=== PATIENT | female | born 1995 | race Caucasian/White ===

== ENCOUNTER 2025-05-01 04:53 | Emergency (ER) | payer MEDICAID, OTHER ==
[2025-05-01 05:28] LABS: #Basophils 0.0 thou/uL (0.0-0.2); #Eosinophils 0.2 thou/uL (0.0-0.7); #Lymphocytes 2.3 thou/uL (1.20-3.40); #Monocytes 0.4 thou/uL (0.11-0.59); #Neutrophils 4.3 thou/uL (1.40-6.50); %Basophils 0.6 % (0.0-1.0); %Eosinophils 3.0 % (0.0-10.0); %Lymphocytes 31.4 % (21.0-51.0); %Monocytes 5.3 % (0.0-10.0); %Neutrophils 59.6 % (42.0-75.0); Hematocrit 43.5 % (36.0-47.0); Hemoglobin 14.5 g/dL (12.0-16.0); Mean Corpuscular Hemoglobin 27.7 pg (27.0-31.0); Mean Corpuscular Volume 83.0 fl (78.0-98.0); Platelet Count 281 10x3/uL (130-400); Red Blood Cell (RBC) Count 5.24 mill/uL (4.20-5.40); White Blood Cell (WBC) Count 7.2 10x3/uL (4.8-10.8)
[2025-05-01] MEDS ORDERED: Ondansetron PF 4 MG/2 ML Vial ONE (05:43)
[2025-05-01] MEDS ORDERED: Ketorolac Tromethamine 30 MG (1 mL) VIAL ONE (05:43)
[2025-05-01] MEDS ORDERED: Pantoprazole 40 MG VIAL ONE (05:44)
[2025-05-01 05:47] LABS: Troponin I Less than 0.010 ng/mL (< 0.028)
[2025-05-01 05:48] LABS: ALT (SGPT) 19 U/L (Less than 34); AST (SGOT) 23 U/L (11-34); Albumin 4.0 g/dL (3.1-4.5); Alkaline Phosphatase 53 U/L (40-110); Anion Gap 16 mmol/L (10-20); BUN (Urea Nitrogen) 16 mg/dL (7.0-18.7); Bilirubin, Total 0.3 mg/dL (0.3-1.2); Calc. Creatinine Clearance 0 mL/min (70-130); Calcium 9.9 mg/dL (7.8-10.44); Carbon Dioxide 24 mmol/L (22-29); Chloride 103 mmol/L (98-107); Globulin 3.4 g/dL (2.4-3.5); Glucose 110 mg/dL (70-105); Lipase 23 U/L (8-78); Potassium 3.9 mmol/L (3.5-5.1); Sodium 139 mmol/L (136-145)
== END 2025-05-01 06:50 | disposition home or self-care (01) ==
LOC: NAV ERS 04:53
DX: O99.63 Diseases of the digestive system complicating the puerperium (principal); K80.20 Calculus of gallbladder without cholecystitis without obstruction
CPT/HCPCS: 80053; 83690; 84484; 85025; 96374; 96375; J1885; J2405; J2470; J7030

== ENCOUNTER 2025-06-19 00:04 | Emergency (ER) | payer MEDICAID, OTHER ==
[2025-06-19 01:04] LABS: #Basophils 0.1 thou/uL (0.0-0.2); #Eosinophils 0.1 thou/uL (0.0-0.7); #Lymphocytes 1.4 thou/uL (1.20-3.40); #Monocytes 0.4 thou/uL (0.11-0.59); #Neutrophils 8.7 thou/uL (1.40-6.50); %Basophils 0.5 % (0.0-1.0); %Eosinophils 0.9 % (0.0-10.0); %Lymphocytes 12.7 % (21.0-51.0); %Monocytes 3.9 % (0.0-10.0); %Neutrophils 82.0 % (42.0-75.0); Hematocrit 41.1 % (36.0-47.0); Hemoglobin 14.3 g/dL (12.0-16.0); Mean Corpuscular Hemoglobin 28.1 pg (27.0-31.0); Mean Corpuscular Volume 80.8 fl (78.0-98.0); Platelet Count 236 10x3/uL (130-400); Red Blood Cell (RBC) Count 5.09 mill/uL (4.20-5.40); White Blood Cell (WBC) Count 10.6 10x3/uL (4.8-10.8)
[2025-06-19 01:10] LABS: BHCG - Serum Negative (NEGATIVE); Pregs Control Bar Appear? YES (CONTROL BAR)
[2025-06-19 01:27] LABS: ALT (SGPT) 42 U/L (Less than 34); AST (SGOT) 102 U/L (11-34); Albumin 4.0 g/dL (3.1-4.5); Alkaline Phosphatase 52 U/L (40-110); Anion Gap 15 mmol/L (10-20); BUN (Urea Nitrogen) 13 mg/dL (7.0-18.7); Bilirubin, Total 0.9 mg/dL (0.3-1.2); Calc. Creatinine Clearance 0 mL/min (70-130); Calcium 9.3 mg/dL (7.8-10.44); Carbon Dioxide 26 mmol/L (22-29); Chloride 102 mmol/L (98-107); Globulin 3.1 g/dL (2.4-3.5); Glucose 109 mg/dL (70-105); Lipase 23 U/L (8-78); Potassium 3.7 mmol/L (3.5-5.1); Sodium 139 mmol/L (136-145)
== END 2025-06-19 01:48 | disposition home or self-care (01) ==
LOC: NAV ERS 00:04
DX: K80.50 Calculus of bile duct without cholangitis or cholecystitis without obstruction (principal)
CPT/HCPCS: 36415; 80053; 83690; 84703; 85025; 93005; 99284